=== PATIENT | female | born 1940 | race Asian ===

== ENCOUNTER 2017-02-12 23:13 | Emergency (ER) | payer MEDICAID ==
[~2017-02-12] VITALS: Ht 152.4 cm; Wt 55.8 kg
[2017-02-12 23:28] VITALS: BP_SYST 184
--- NOTE | 2017-02-12 23:32 | NUR ---
Patient to ER bed 2 to gown for evaluation. Side rails up. Report given to Jadiel LANDIN.
--- NOTE | 2017-02-12 23:32 | NUR ---
Pt bit her tongue earlier and she can't stop the bleeding. Pt takes warfarin at home. Bleeding is controlled with gauze. Will continue to monitor. No other injuries or compliants mentioned/noted. No distress noted.
[2017-02-13] MEDS ORDERED: LIDOCAINE 4% TOPICAL 50 ML BOTTLE MM ONE (02:15)
[2017-02-13] MEDS ORDERED: SILVER NITRATE APPLICATOR 1 STICK STICK..EA. TP ONE (02:15)
--- NOTE | 2017-02-13 03:00 | NUR ---
Dr. Figueroa to administer Silver Nitrate on tongue.
[2017-02-13 03:12] VITALS: BP_SYST 133
--- NOTE | 2017-02-13 03:12 | NUR ---
Patient given written and verbal discharge instructions and verbalizes understanding. ER MD Figueroa discussed with patient the results and treatment provided. Patient in stable condition. ID arm band removed. Patient educated on pain management and to follow up with PMD. Pain Scale 0/10. Opportunity for questions provided and answered.
== END 2017-02-13 03:12 | disposition home or self-care (01) ==
LOC: SED 23:13
DX: S01.512A Laceration without foreign body of oral cavity, initial encounter (principal); I10 Essential (primary) hypertension; I48.91 Unspecified atrial fibrillation; X58.XXXA Exposure to other specified factors, initial encounter; Y93.89 Activity, other specified; Y92.89 Other specified places as the place of occurrence of the external cause; Y99.8 Other external cause status
CPT/HCPCS: 99283; J7120